=== PATIENT | female | born 1975 | race African-American/Black ===

== ENCOUNTER 2016-08-18 22:54 | Emergency (ER) | payer OTHER ==
[~2016-08-18] VITALS: Ht 167.6 cm; Wt 120.0 kg
[~2016-08-18 22:54] MED LIST: AUGM875T PO; CETI10 PO; CLIN1CAP6 PO; FLON0.053; MONT10TA2 PO; NAPR550T3 PO
[2016-08-18 22:57] VITALS: BP 179/93; PULSE 85; RESP 16; TEMP 98.5; O2SAT 100
[2016-08-18] MEDS ORDERED: BACT800T5 PO (23:18)
--- NOTE | 2016-08-18 23:18 | PD ---
HPI Chief Complaint: Injury Time Seen by Provider: 23:15 Travel History International Travel<30 days: No Contact w/Intl Traveler<30days: No Traveled to known affect area: No History of Present Illness HPI 40 year-old female presents to the emergency department for evaluation of a painful area on the lateral right foot. Patient states approximately a week ago she is getting a pedicure when she sustained a cut. She states she has been taking care of it and apply Neosporin but the area seems to be more painful with discoloration. There is no fluctuance or drainage but the patient is concerned she may have an infection. Denies any injury. She has no other symptoms to report. PFSH Past Medical History Heart Rhythm Problems: No Cardiac Catheterization: Yes Cardiovascular Problems: No High Cholesterol: No Congestive Heart Failure: No Diabetes: No Diminished Hearing: No Gastrointestinal Disorders: No Heparin Induced Thrombocytopen: No Hypertension: No Implanted Vascular Access Dvce: No Medical other: Yes (VERTIGO) Reproductive: Yes (uterine fibroids) Respiratory: Yes (SLEEP APNEA) Immunizations Current: Yes Sleep Apnea: Yes Tetanus Vaccination: > 5 Years Influenza Vaccination: Yes ?: Unknown : 1 Para: 1 Miscarriage: 0 : 0 Past Surgical History Coronary Artery Bypass Graft: No Neurologic Surgery: No Tonsillectomy: Yes (T& A) Other Surgery: Yes (SEPTOPLASTY) Family History Family Myocardial Infarction: No Social History Alcohol Use: No Tobacco Use: No Substance Use: No Allergies-Medications (Allergen,Severity, Reaction): Coded Allergies: No Known Allergies (Verified , 08/18/16) Reported Meds & Prescriptions Reported Meds & Active Scripts Active Bactrim DS (Sulfamethoxazole-Trimethoprim) 800-160 Mg Tab 1 Tab PO BID Review of Systems Except as stated in HPI: all other systems reviewed are Neg Physical Exam Narrative GENERAL: Well-nourished, well-developed female patient in no acute distress SKIN: Focused skin assessment warm/dry. 5 cm area of hyperpigmentation on the lateral right foot. There is a scabbed wound at the middle of this. There is tenderness to palpate however there is no fluctuation. Noedema. No drainage. HEAD: Normocephalic. EYES: No scleral icterus. No injection or drainage. NECK: Supple, trachea midline. No JVD or lymphadenopathy. CARDIOVASCULAR: Regular rate and rhythm without murmurs, gallops, or rubs. RESPIRATORY: Breath sounds equal bilaterally. No accessory muscle use. Data Data Last Documented VS Vital Signs Date Time Temp Pulse Resp B/P Pulse Ox O2 Delivery O2 Flow Rate FiO2 08/18/16 22:57 98.5 85 16 179/93 100 Room Air MDM Medical Decision Making Medical Screen Exam Complete: Yes Emergency Medical Condition: Yes Medical Record Reviewed: Yes Differential Diagnosis Infected wound versus cellulitis versus abscess Narrative Course 40 year-old female presents to emergency room for evaluation of a foot wound. Patient is concerned because the pain is getting worse and hyperpigmentation has developed around it. This is concerning for a skin infection. Patient will be started on oral antibiotics. She is encouraged to follow-up with primary care provider. She agrees to return immediately with any acute worsening of symptoms. Diagnosis Primary Impression: Right foot infection Referrals: [facility] Primary Care Physician Patient Instructions: Acute Wound Care (ED), General Instructions Additional Instructions: Elevate to reduce pain and swelling Follow-up with her primary care provider Return immediately with any acute worsening of symptoms Med/Other Pt SpecificInfo: Prescription(s) given Scripts Sulfamethoxazole-Trimethoprim (Bactrim DS)800-160 Mg Tab1 Tab PO BID #20 TAB Ref 0 Prov:Lexii Saxena 08/18/16 Disposition: 01 DISCHARGE HOME Condition: Stable Lexii Saxena August 18, 2016 23:18
== END 2016-08-18 23:55 | disposition home or self-care (01) ==
LOC: NEPK 22:54
DX: L08.9 Local infection of the skin and subcutaneous tissue, unspecified (principal); S91.311A Laceration without foreign body, right foot, initial encounter; Y93.E8 Activity, other personal hygiene; Y92.9 Unspecified place or not applicable
CPT/HCPCS: 99283

== ENCOUNTER 2016-10-29 11:02 | Emergency (ER) | payer OTHER ==
[~2016-10-29] VITALS: Ht 172.7 cm; Wt 165.0 kg
[~2016-10-29 11:02] MED LIST changes: -AUGM875T PO; +BACT800T5 PO; -CETI10 PO; -CLIN1CAP6 PO; -FLON0.053; -MONT10TA2 PO; -NAPR550T3 PO
[2016-10-29 11:04] VITALS: BP 126/70; PULSE 76; RESP 15; TEMP 98.8; O2SAT 100
--- NOTE | 2016-10-29 11:11 | PD ---
Physical Exam Time Seen by Provider: 11:11 Narrative 41yo F c/o R hip for a couple days. Denies injury. Patient ambulatory in triage. Patient seen in triage. VS reviewed. Patient awaiting bed placement. Data Data Last Documented VS Vital Signs Date Time Temp Pulse Resp B/P Pulse Ox O2 Delivery O2 Flow Rate FiO2 10/29/16 11:04 98.8 76 15 126/70 100 MDM Supervised Visit with ROHIT: Bernadette Alfred Oct 29, 2016 11:11
--- NOTE | 2016-10-29 12:53 | RADRPT ---
EXAM DATE/TIME: 10/29/2016 12:30 [facility] COMPARISON: No previous studies available for comparison. INDICATIONS : Right hip pain for several days. No known injury. MEDICAL HISTORY : None. SURGICAL HISTORY : None. ENCOUNTER: Initial ACUITY: 3 days PAIN SCORE: 8/10 LOCATION: Right hip. FINDINGS: There are mild to moderate degenerative changes without fracture. There is no significant joint effu salvador. CONCLUSION: Mild to moderate degenerative changes without fracture. Vishal Heredia MD FACR on October 29, 2016 at 12:51 Board Certified Radiologist. This report was verified electronically.
[2016-10-29 14:17] VITALS: BP 142/84; PULSE 87; RESP 20; TEMP 98; O2SAT 100
[2016-10-29] MEDS ORDERED: HYDR12.57 PO (14:24)
[2016-10-29] MEDS ORDERED: MONT10TA2 PO (14:24)
[2016-10-29] MEDS ORDERED: ALLE10TA PO (14:24)
[2016-10-29] MEDS ORDERED: CYCL1TAB29 PO (15:23)
[2016-10-29] MEDS ORDERED: MELO-1 PO (15:23)
[2016-10-29] MEDS ORDERED: PRED50 PO (15:23)
--- NOTE | 2016-10-29 15:24 | PD ---
HPI Chief Complaint: Pain: Acute or Chronic Time Seen by Provider: 14:30 Travel History International Travel<30 days: No Contact w/Intl Traveler<30days: No Traveled to known affect area: No History of Present Illness HPI Patient is a 41-year-old female presenting to emergency for evaluation of right hip pain. Patient states that ongoing for 3 days, she denies any recent injury or trauma but states she fell on it a few months ago. It is not exacerbated or alleviated by anything. Patient has been using [id number] lighted cane patches with no relief. She took Tylenol 2 days ago but has not taken any medications consistently. She denies any numbness, weakness in her extremities , no bladder or bowel incontinence, no redness or warmth on her hip. Patient reports her pain is 8 out of 10. [facility] Past Medical History Narrative Medical Allergic rhinitis, peripheral edema Heart Rhythm Problems: No Cardiac Catheterization: Yes Cardiovascular Problems: No High Cholesterol: No Congestive Heart Failure: No Diabetes: No Diminished Hearing: No Gastrointestinal Disorders: No Heparin Induced Thrombocytopen: No Hypertension: No Implanted Vascular Access Dvce: No Medical other: Yes (VERTIGO) Reproductive: Yes (uterine fibroids) Immunizations Current: Yes Sleep Apnea: Yes ?: Not LMP: 10/13/16 : 1 Para: 1 Miscarriage: 0 : 0 Past Surgical History Coronary Artery Bypass Graft: No Neurologic Surgery: No Tonsillectomy: Yes Other Surgery: Yes (SEPTOPLASTY) Social History Alcohol Use: No Tobacco Use: No Substance Use: No Allergies-Medications (Allergen,Severity, Reaction): Coded Allergies: No Known Allergies (Verified , 10/29/16) Reported Meds & Prescriptions Reported Meds & Active Scripts Active Reported Hydrochlorothiazide 12.5 Mg Cap 12.5 Mg PO DAILY Allergy Relief (Loratadine) 10 Mg Tab 10 Mg PO HS Singulair (Montelukast Sodium) 10 Mg Tab 10 Mg PO HS Review of Systems Except as stated in HPI: all other systems reviewed are Neg Musculoskeletal: Positive: Myalgias, Arthralgias, Pain Physical Exam Narrative GENERAL: Obese, well-developed, female. Resting comfortably in no acute distress. SKIN: Warm and dry. HEAD: Atraumatic. Normocephalic. EYES: Pupils equal and round. No scleral icterus. No injection or drainage. ENT: No nasal bleeding or discharge. Mucous membranes pink and moist. NECK: Trachea midline. No JVD. CARDIOVASCULAR: Regular rate and rhythm. RESPIRATORY: No accessory muscle use. Clear to auscultation. Breath sounds equal bilaterally. GASTROINTESTINAL: Abdomen soft, non-tender, nondistended. Hepatic and splenic margins not palpable. MUSCULOSKELETAL: Extremities without clubbing, cyanosis, or edema. No obvious deformities. Full range of motion in right leg, mildly tender to palpation laterally. Patient is neurovascularly intact. NEUROLOGICAL: Awake and alert. No obvious cranial nerve deficits. Motor grossly within normal limits. Five out of 5 muscle strength in the arms and legs. Normal speech. PSYCHIATRIC: Appropriate mood and affect; insight and judgment normal. Data Data Last Documented VS Vital Signs Date Time Temp Pulse Resp B/P Pulse Ox O2 Delivery O2 Flow Rate FiO2 10/29/16 14:17 84 20 10/29/16 14:17 98.0 142/84 100 Room Air Orders Hip, Uni(Ap&Lat) Wo Ap Pelvis (10/29/16 ) MDM Medical Decision Making Medical Screen Exam Complete: Yes Emergency Medical Condition: Yes Medical Record Reviewed: Yes Interpretation(s) Last Impressions Hip X-Ray 10/29/16 0000 Signed Impressions: Service Date/Time: Saturday, October 29, 2016 12:30 - CONCLUSION: Mild to moderate degenerative changes without fracture. Vishal Heredia MD FACR Vital Signs Date Time Temp Pulse Resp B/P Pulse Ox O2 Delivery O2 Flow Rate FiO2 10/29/16 14:17 84 20 10/29/16 14:17 98.0 87 20 142/84 100 Room Air 10/29/16 11:04 98.8 76 15 126/70 100 Differential Diagnosis Sprain versus strain versus cystitis versus arthritis versus fracture versus other Narrative Course Patient is a 41-year-old female presenting with 3 days of right hip pain, there was no preceding injury or trauma. Patient is neurovascularly intact. Imaging of the right hip negative for acute fracture does show degenerative changes which are moderate in nature. Discussed with patient that NSAID's were the main therapy for arthritis. She was also encouraged to maintain range of motion exercises, apply warm heat to the effected area. Additionally patient was advised that weight loss would help alleviate the pressure on her joints. She was encouraged to follow up with her primary care provider. She was given strict return precautions. Patient verbalized understanding of instructions. Patient stable for discharge. Diagnosis Primary Impression: Degenerative joint disease (DJD) of hip Qualified Code: M16.11 - Osteoarthritis of right hip, unspecified osteoarthritis type Referrals: Primary Care Physician 1 week Patient Instructions: Arthritis (ED), General Instructions Additional Instructions: Take medications as directed Range of motion exercises, apply warm moist heat to affected area, avoid exacerbating activities, avoid bed rest Follow-up with her primary doctor Return to emergency department for any new or worsening symptoms Med/Other Pt SpecificInfo: Prescription(s) given Scripts Prednisone 50 Mg Tab50 Mg PO DAILY 3 Days Ref 0 Prov:Sandie Howard 10/29/16 Cyclobenzaprine (Flexeril)10 Mg Tab10 Mg PO TID PRN (MUSCLE SPASM) 7 Days Ref 0 Prov:Sandie Howard 10/29/16 Meloxicam 15 Mg Tab15 Mg PO DAILY #30 TAB Ref 0 Prov:Sandie Howard 10/29/16 Disposition: 01 DISCHARGE HOME Condition: Stable Sandie Howard Oct 29, 2016 15:23
[2016-10-29] MEDS ORDERED: KETOROLAC TROMETHAMINE 60 MG/2 ML (IM) VIAL IM ONE (16:00)
[2016-10-29 16:21] VITALS: BP 128/67
== END 2016-10-29 16:23 | disposition home or self-care (01) ==
LOC: NEPD 11:02
DX: M16.11 Unilateral primary osteoarthritis, right hip (principal)
CPT/HCPCS: 73502; 96372; 99284; J1885

== ENCOUNTER 2017-01-05 19:57 | Emergency (ER) | payer OTHER ==
[~2017-01-05] VITALS: Ht 172.7 cm; Wt 174.0 kg
[~2017-01-05 19:57] MED LIST changes: +ALLE10TA PO; -BACT800T5 PO; +CYCL1TAB29 PO; +HYDR12.57 PO; +MELO-1 PO; +MONT10TA2 PO; +PRED50 PO
[2017-01-05 19:59] VITALS: BP 144/94; PULSE 100; RESP 16; TEMP 99.1; O2SAT 99
[2017-01-05] MEDS ORDERED: BUPR100CR PO (21:55)
--- NOTE | 2017-01-05 21:56 | PD ---
HPI Chief Complaint: Psychiatric Symptoms Time Seen by Provider: 21:39 Travel History International Travel<30 days: No Contact w/Intl Traveler<30days: No Traveled to known affect area: No History of Present Illness HPI 41-year-old female here for evaluation of depression. The patient reports feeling depressed over the last couple of months, worse over the last 2 days. She describes decreased energy and loss of enjoyment in life. She tells me that she recently lost her job and no longer has health insurance. She denies suicidal or homicidal ideation. No alcohol or drug abuse. No physical complaints. She tells me she was on Wellbutrin a couple of years ago for depression. PFSH Past Medical History Heart Rhythm Problems: No Cardiac Catheterization: Yes Cardiovascular Problems: No High Cholesterol: No Congestive Heart Failure: No Diabetes: No Diminished Hearing: No Gastrointestinal Disorders: No Heparin Induced Thrombocytopen: No Hypertension: No Implanted Vascular Access Dvce: No Medical other: Yes (VERTIGO) Musculoskeletal: Yes Reproductive: Yes (uterine fibroids) Respiratory: Yes (SLEEP APNEA) Immunizations Current: Yes Sleep Apnea: Yes ?: Not LMP: 12/28/16 : 1 Para: 1 Miscarriage: 0 : 0 Past Surgical History Coronary Artery Bypass Graft: No Neurologic Surgery: No Oral Surgery: Yes (T&A) Tonsillectomy: Yes Other Surgery: Yes (SEPTOPLASTY) Social History Alcohol Use: No Tobacco Use: No Substance Use: No Allergies-Medications (Allergen,Severity, Reaction): Coded Allergies: No Known Allergies (Verified , 01/05/17) Reported Meds & Prescriptions Reported Meds & Active Scripts Active Prednisone 50 Mg Tab 50 Mg PO DAILY 3 Days Flexeril (Cyclobenzaprine HCl) 10 Mg Tab 10 Mg PO TID PRN 7 Days Meloxicam 15 Mg Tab 15 Mg PO DAILY Reported Hydrochlorothiazide 12.5 Mg Cap 12.5 Mg PO DAILY Allergy Relief (Loratadine) 10 Mg Tab 10 Mg PO HS Singulair (Montelukast Sodium) 10 Mg Tab 10 Mg PO HS Review of Systems Except as stated in HPI: all other systems reviewed are Neg Physical Exam Narrative GENERAL: Well-developed, well-nourished, overweight, tearful, no apparent distress. SKIN: Focused skin assessment warm/dry. HEAD: Atraumatic. Normocephalic. EYES: Pupils equal and round. No scleral icterus. No injection or drainage. ENT: Mucous membranes pink and moist. NECK: Trachea midline. No JVD. CARDIOVASCULAR: Regular rate and rhythm. No murmur appreciated. RESPIRATORY: No accessory muscle use. Clear to auscultation. Breath sounds equal bilaterally. GASTROINTESTINAL: Abdomen soft, non-tender, nondistended. MUSCULOSKELETAL: No obvious deformities. No clubbing. No cyanosis. No edema. NEUROLOGICAL: Awake and alert. No obvious cranial nerve deficits. Motor grossly within normal limits. Normal speech. PSYCHIATRIC: Depressed mood. Flat affect. Tearful. Data Data Last Documented VS Vital Signs Date Time Temp Pulse Resp B/P (MAP) Pulse Ox O2 Delivery O2 Flow Rate FiO2 01/05/17 19:59 99.1 100 16 144/94 (111) 99 Room Air MDM Medical Decision Making Medical Screen Exam Complete: Yes Emergency Medical Condition: Yes Medical Record Reviewed: Yes Differential Diagnosis Depression Narrative Course This is a 41-year-old female who is here with complaints of feeling depressed. She denies suicidal or homicidal ideation. No toxic ingestions. No physical complaints. She has been on Wellbutrin in the past for depression, but states that she no longer has health insurance because she lost her job. Psychiatric screener was contacted for resources for the patient follow-up as an outpatient. Plan at this point is to give her a prescription for Wellbutrin with strict return instructions to the emergency department. I strongly advised that she follow-up as an outpatient with a psychiatrist this week. She verbalizes understanding and agreement with plan. Diagnosis Primary Impression: Depression Qualified Codes: F32.9 - Major depressive disorder, single episode, unspecified Referrals: [facility] 1 day [facility] day Additional Instructions: Follow-up with a psychiatrist or with [facility] this week. Return to the emergency department for worsening symptoms or any other concerns especially if you are feeling suicidal. Scripts Bupropion HCl ER 12 HR (Wellbutrin SR 12 HR) 100 Mg Tab 100 MG PO Q12HR for Control Depression for 30 Days, TAB 0 Refills Prov: Reggie Madsen MD 01/05/17 Disposition: 01 DISCHARGE HOME Condition: Stable Reggie Madsen MD Jan 05, 2017 21:55
== END 2017-01-05 22:13 | disposition home or self-care (01) ==
LOC: NEPD 19:57
DX: F32.9 Major depressive disorder, single episode, unspecified (principal)
CPT/HCPCS: 99283

== ENCOUNTER 2017-07-23 12:21 | Emergency (ER) | payer SELFPAY ==
[~2017-07-23 12:21] MED LIST changes: -ALLE10TA PO; +BUPR100CR PO; +CYCL10TA PO; -CYCL1TAB29 PO; +LORA-650 PO; -MELO-1 PO
[2017-07-23 12:48] VITALS: BP 136/60; PULSE 94; RESP 18; TEMP 98.7; O2SAT 99
[2017-07-23] MEDS ORDERED: AUGM875T3 PO (13:57)
--- NOTE | 2017-07-23 13:57 | PD ---
HPI Chief Complaint: Cold / Flu Symptoms Time Seen by Provider: 13:44 Travel History International Travel<30 days: No Contact w/Intl Traveler<30days: No Traveled to known affect area: No History of Present Illness HPI 41-year-old female presents to the emergency department with complaint that she has a sinus infection for the past 2 weeks. Reports nasal congestion and sinus pressure. Reports fever of 101.0 on Thursday, otherwise says she has been having low-grade fevers of like 99-100. Denies ear pain, sore throat. Says she does have a cough at night when she lays down. Reports nasal drainage to the back of her throat. She has tried taking Claritin, Zyrtec, and Maddie- [place] cold and flu for symptom management with minimal relief of symptoms. No others are sick with similar symptoms. Symptoms are mild in severity. Reports pressure behind her eyes. No known aggravating factors. Primary care provider is Dr. Keaton bloom. No known allergies. Denies significant past medical history. Has no other medical complaints. No other modifying factors or associated signs and symptoms. PFSH Past Medical History Heart Rhythm Problems: No Cardiac Catheterization: Yes Cardiovascular Problems: No High Cholesterol: No Congestive Heart Failure: No Diabetes: No Diminished Hearing: No Gastrointestinal Disorders: No Heparin Induced Thrombocytopen: No Hypertension: No Implanted Vascular Access Dvce: No Musculoskeletal: Yes Reproductive: Yes (uterine fibroids) Respiratory: Yes (SLEEP APNEA) Immunizations Current: Yes Sleep Apnea: Yes : 1 Para: 1 Miscarriage: 0 : 0 Past Surgical History Coronary Artery Bypass Graft: No Neurologic Surgery: No Oral Surgery: Yes (T&A) Tonsillectomy: Yes Other Surgery: Yes (SEPTOPLASTY) Social History Alcohol Use: No Tobacco Use: No Substance Use: No Allergies-Medications (Allergen,Severity, Reaction): Coded Allergies: No Known Allergies (Verified , 01/05/17) Reported Meds & Prescriptions Reported Meds & Active Scripts Active Augmentin (Amoxicillin-Clavulanate) 875-125 Mg Tab 1 Tab PO BID 7 Days Wellbutrin SR 12 HR (Bupropion HCl) 100 Mg Tab 100 Mg PO Q12HR 30 Days Prednisone 50 Mg Tab 50 Mg PO DAILY 3 Days Flexeril (Cyclobenzaprine HCl) 10 Mg Tab 10 Mg PO TID PRN 7 Days Reported Hydrochlorothiazide 12.5 Mg Cap 12.5 Mg PO DAILY Allergy Relief (Loratadine) 10 Mg Tab 10 Mg PO HS Singulair (Montelukast Sodium) 10 Mg Tab 10 Mg PO HS Review of Systems Except as stated in HPI: all other systems reviewed are Neg Physical Exam Narrative GENERAL: Well-nourished, well-developed black patient, in no acute distress SKIN: Warm and dry. No rash. HEAD: Atraumatic. Normocephalic. Frontal and maxillary sinus tenderness on palpation. EYES: Pupils equal and round at 3 mm with brisk reaction. No scleral icterus. No injection or drainage. PERRLA. ENT: Mucosa pink and moist. Oropharynx without erythema, exudates, tonsillar edema.. No uvular edema. No uvular, palatal, or tonsillar deviation. Airway patent. EARS: Bilateral pinnae and external canals appear within normal limits. Bilateral tympanic membranes without erythema, dullness or perforation. NECK: Trachea midline. No lymphadenopathy. CARDIOVASCULAR: Regular rate and rhythm. No murmur appreciated. RESPIRATORY: No accessory muscle use. Clear to auscultation. Breath sounds equal bilaterally. GASTROINTESTINAL: Obese MUSCULOSKELETAL: No obvious deformities. No clubbing. No cyanosis. No edema. NEUROLOGICAL: Awake and alert. Oriented 3. No obvious cranial nerve deficits. Motor grossly within normal limits. Normal speech. Moves all extremities. 5/5 strength to all extremities. PSYCHIATRIC: Appropriate mood and affect; insight and judgment normal. Data Data Last Documented VS Vital Signs Date Time Temp Pulse Resp B/P (MAP) Pulse Ox O2 Delivery O2 Flow Rate FiO2 07/23/17 12:48 98.7 94 18 136/60 (85) 99 Orders Orders Ed Discharge Order (07/23/17 13:57) [facility] Medical Decision Making Medical Screen Exam Complete: Yes Emergency Medical Condition: Yes Medical Record Reviewed: Yes Differential Diagnosis Sinusitis, upper respiratory infection, seasonal allergies Narrative Course 41-year-old female physical exam and HPI consistent with sinusitis. Patient is afebrile and nontoxic appearing. Reports T-max 101.0 on Thursday. I will prescribe antibiotics secondary to length of illness. Augmentin prescribed for home. Work release provided as requested. Instructed patient to follow up with primary care provider. Patient verbalizes understanding and agreement with treatment plan. Patient is medically cleared and stable for discharge. Discussed reasons to return to the emergency department. Patient agrees with treatment plan. The patients vital signs are stable and the patient is stable for outpatient follow-up and treatment. Patient discharged home, stable and in no acute distress. Diagnosis Primary Impression: Sinusitis Qualified Codes: J32.9 - Chronic sinusitis, unspecified Referrals: [facility] Primary Care Physician Patient Instructions: General Instructions, Safe Use of Cough and Cold Medicines (ED), Sinusitis (ED) Departure Forms: Tests/Procedures, Work Release Enter return to work date: Jul 27, 2017 Additional Instructions: Antibiotics as prescribed and complete full course Ibuprofen or Tylenol as instructed and as needed for fever/pain [id number] cough and cold medications as directed and as needed for symptom management Get plenty of sleep/rest Drink plenty of fluids to prevent dehydration; popsicles and Gatorade Use an air humidifier/turn off ceiling fans Follow-up with primary care provider Return immediately to the emergency department with worsening of symptoms Med/Other Pt SpecificInfo: Prescription(s) given Scripts Amoxicillin-Clavulanate (Augmentin) 875-125 Mg Tab 1 TAB PO BID for Infection for 7 Days, #14 TAB 0 Refills Prov: Bernadette Hillman 07/23/17 Disposition: 01 DISCHARGE HOME Condition: Stable Bernadette Hillman Jul 23, 2017 13:57
== END 2017-07-23 14:15 | disposition home or self-care (01) ==
LOC: NEPK 12:21
DX: J32.9 Chronic sinusitis, unspecified (principal); G47.30 Sleep apnea, unspecified; Z79.899 Other long term (current) drug therapy
CPT/HCPCS: 99283